=== PATIENT | male | born 1945 | race Caucasian/White ===

== ENCOUNTER 2022-12-22 17:00 | Outpatient (CLI) | payer OTHER | END 2022-12-22 17:01 | disposition home or self-care (01) | LOC: SLEEPLAB 17:00 | DX: G47.33 Obstructive sleep apnea (adult) (pediatric) (principal); R06.83 Snoring; G47.10 Hypersomnia, unspecified; E66.9 Obesity, unspecified; Z68.29 Body mass index [BMI] 29.0-29.9, adult | CPT/HCPCS: 95811 ==